=== PATIENT | female | born 1965 | race Caucasian/White ===

== ENCOUNTER 2016-10-16 18:43 | Emergency (ER) | payer MEDICARE ==
[2016-10-16] MEDS ORDERED: NORVASC10 M2 PO (22:33)
[2016-10-16] MEDS ORDERED: EFFEXOR XR75 M1 PO (22:34)
[2016-10-16] MEDS ORDERED: LOTENSIN20 M1 PO (22:34)
[2016-10-16] MEDS ORDERED: TRAZODONE HCL50 M1 PO (22:34)
[2016-10-16] MEDS ORDERED: PRILOSEC OTC20 M1 PO (22:34)
== END 2016-10-16 22:52 ==
LOC: EDMED 18:43
DX: T24.022A Burn of unspecified degree of left knee, initial encounter (principal); T31.0 Burns involving less than 10% of body surface; F17.200 Nicotine dependence, unspecified, uncomplicated; X19.XXXA Contact with other heat and hot substances, initial encounter